=== PATIENT | female | born 1990 | race Caucasian/White ===

== ENCOUNTER 2018-03-27 10:27 | Outpatient (CLI) | payer OTHER ==
[~2018-03-27] VITALS: Ht 152.4 cm; Wt 59.0 kg
[~2018-03-27 10:27] MED LIST: CYCLOBENZAPRINE10 MG PO; DICLOFENAC SODI50 MG PO; MOTRIN800 MG PO; ORPH100T PO
== END 2018-03-27 10:45 | disposition home or self-care (01) ==
LOC: OFIC 805 10:27
DX: J32.8 Other chronic sinusitis (principal); R09.81 Nasal congestion; J34.89 Other specified disorders of nose and nasal sinuses

== ENCOUNTER 2018-03-27 12:18 | Outpatient (CLI) | payer OTHER | END 2018-03-27 13:05 | disposition home or self-care (01) | LOC: TOM 12:18 → ADM 15:15 → TOM 15:15 | DX: J32.4 Chronic pansinusitis (principal) ==

== ENCOUNTER 2018-04-02 08:24 | Outpatient (CLI) | payer OTHER ==
[~2018-04-02] VITALS: Ht 152.4 cm; Wt 59.0 kg
== END 2018-04-02 08:45 | disposition home or self-care (01) ==
LOC: OFIC 805 08:24
DX: J32.8 Other chronic sinusitis (principal); R09.81 Nasal congestion; R09.82 Postnasal drip; J34.89 Other specified disorders of nose and nasal sinuses

== ENCOUNTER 2018-05-15 09:05 | Outpatient (CLI) | payer OTHER ==
[~2018-05-15] VITALS: Ht 152.4 cm; Wt 59.0 kg
== END 2018-05-15 09:20 | disposition home or self-care (01) ==
LOC: OFIC 805 09:05
DX: J32.8 Other chronic sinusitis (principal); R09.81 Nasal congestion; J34.89 Other specified disorders of nose and nasal sinuses; R09.82 Postnasal drip

== ENCOUNTER → 2018-06-13 15:46 | Outpatient (CLI) | payer OTHER | END | disposition home or self-care (01) | LOC: RAD 13:45 → ADM 13:45 → RAD 15:46 | DX: S86.912A Strain of unspecified muscle(s) and tendon(s) at lower leg level, left leg, initial encounter (principal) ==

== ENCOUNTER 2019-03-14 08:53 | Outpatient (CLI) | payer OTHER ==
[~2019-03-14] VITALS: Ht 152.4 cm; Wt 61.2 kg
== END 2019-03-14 09:15 | disposition home or self-care (01) ==
LOC: OFIC 805 08:53
DX: H61.23 Impacted cerumen, bilateral (principal); R09.82 Postnasal drip; J34.89 Other specified disorders of nose and nasal sinuses

== ENCOUNTER 2020-09-23 09:23 | Outpatient (CLI) | payer OTHER | END 2020-09-23 16:23 | disposition home or self-care (01) | LOC: OFIC 805 09:23 | PROVIDERS: ATTEND Otolaryngology | DX: R09.82 Postnasal drip (principal); J34.89 Other specified disorders of nose and nasal sinuses; J30.89 Other allergic rhinitis ==

== ENCOUNTER 2022-10-08 07:00 | Day surgery (SDC) | payer OTHER | END 2022-10-08 15:10 | disposition home or self-care (01) | LOC: CIR.AMB 07:00 | PROVIDERS: ATTEND Obstetrics & Gynecology | DX: O02.1 Missed abortion (principal); O72.2 Delayed and secondary postpartum hemorrhage; Z91.013 Allergy to seafood; Z91.040 Latex allergy status; Z20.822 Contact with and (suspected) exposure to COVID-19; D64.89 Other specified anemias ==

== ENCOUNTER → 2023-06-06 | Emergency (ER) | payer OTHER ==
[~2023-06-06] VITALS: Ht 170.2 cm; Wt 64.9 kg
== END | disposition left against medical advice (07) ==
LOC: ER 08:11
DX: Z53.21 Procedure and treatment not carried out due to patient leaving prior to being seen by health care provider (principal)

== ENCOUNTER → 2023-09-05 | Emergency (ER) | payer OTHER ==
[~2023-09-05] MED LIST changes: +ASA81 MG PO; +IRON236 MG; +PRENATAL CAPLE1 EAC1; +PROMETRIUM200 MG PO
== END | disposition left against medical advice (07) ==
LOC: ER 22:17
DX: Z53.21 Procedure and treatment not carried out due to patient leaving prior to being seen by health care provider (principal)

== ENCOUNTER 2023-09-06 00:50 | Outpatient (CLI) | payer OTHER ==
[~2023-09-06 00:50] MED LIST changes: -ASA81 MG PO; -IRON236 MG; -PRENATAL CAPLE1 EAC1; -PROMETRIUM200 MG PO
[2023-09-06] MEDS ORDERED: IRON236 MG (01:03)
[2023-09-06] MEDS ORDERED: PRENATAL CAPLE1 EAC1 (01:03)
[2023-09-06] MEDS ORDERED: ASA81 MG PO (01:04)
[2023-09-06] MEDS ORDERED: PROMETRIUM200 MG PO (01:04)
== END 2023-09-06 12:14 | disposition home or self-care (01) ==
LOC: OBS/DEL 00:50
PROVIDERS: ATTEND Obstetrics & Gynecology Gynecology
DX: O26.93 Pregnancy related conditions, unspecified, third trimester (principal); Z3A.33 33 weeks gestation of pregnancy

== ENCOUNTER 2023-10-12 11:46 | Outpatient (CLI) | payer OTHER ==
[~2023-10-12 11:46] MED LIST changes: +ASA81 MG PO; +IRON236 MG; +PRENATAL CAPLE1 EAC1; +PROMETRIUM200 MG PO
== END 2023-10-12 12:27 | disposition home or self-care (01) ==
LOC: NST 11:46
PROVIDERS: ATTEND Obstetrics & Gynecology Gynecology
DX: Z34.83 Encounter for supervision of other normal pregnancy, third trimester (principal)

== ENCOUNTER 2023-10-18 05:24 | Inpatient (IN) | payer OTHER ==
[~2023-10-18] VITALS: Ht 170.2 cm; Wt 79.8 kg
[2023-10-18 07:02] LABS: HEMATOCRIT 32.4 % (36.0-45.00); HEMOGLOBIN 11.3 g/dL (12.0-15.00); MEAN CELL VOLUME 90.6 fL (80.00-100.00); MEAN CORPUSCULAR HEMOGLOBIN 31.7 pg (27.00-32.0); PLATELET COUNT 166 K/uL (150-450); RED BLOOD COUNT 3.57 M/uL (4.00-6.00); RED CELL DISTRIBUTION WIDTH 13.3 % (11.5-14.5)
[2023-10-18 07:24] LABS: INR < 0.93; PARTIAL THROMBOPLASTIN TIME 29.1 SECONDS (22.0-34.0); PROTHROMBIN TIME 9.7 SECONDS (9.0-11.5)
[2023-10-18 07:31] LABS: ALBUMIN 2.7 gm/dL (3.4-5.0); BILIRUBIN TOTAL 0.39 mg/dL (0.3-1.2); CALCIUM 8.7 mg/dL (8.5-10.1); CREATININE SERUM 0.58 mg/dL (0.55-1.02); GFR 118.3; GLOBULINA 3.5 G/DL (2.4-3.5); POTASSIUM 3.25 mEq/L (3.5-5.1); TOTAL PROTEIN 6.2 gm/dL (6.4-8.2)
[2023-10-18] MEDS ORDERED: OXYTOCIN 500 ML IV ONE (08:15)
[2023-10-18] MEDS ORDERED: CHLORHEXIDINE GLUCONATE 120 ML BOTTLE TOP ONE (10:39)
[2023-10-18] MEDS ORDERED: ERYTHROMYCIN BASE 1 GM TUBE OP ONE (10:39)
[2023-10-18] MEDS ORDERED: OXYTOCIN 20 UNITS/1000ML RL PIGGYBAG IV ONE (10:40)
[2023-10-18] MEDS ORDERED: MORPHINE SULFATE 4 MG/ML CARTRIDGE IV ONE (11:00)
[2023-10-18] MEDS ORDERED: NALOXONE HCL 0.4 MG/ML AMPUL ONE (12:04)
[2023-10-18] MEDS ORDERED: LIDOCAINE HCL 1% 200MG/20ML VIAL IJ SCH (12:30)
[2023-10-18] MEDS ORDERED: CHLORHEXIDINE GLUCONATE 120 ML BOTTLE TOP SCH (12:30)
[2023-10-18] MEDS ORDERED: IBUprofen 400 MG TABLET PO PRN (12:30)
[2023-10-18] MEDS ORDERED: ERYTHROMYCIN BASE 1 GM TUBE OP SCH (12:30)
[2023-10-18 14:52] LABS: ABG PH 7.318 (7.35-7.45); ABG PO2 42.7 mmHg (80-100); ABG pCO2 45.7 mmHg (35-45); BASE EXCESS -3.4 mmol/l; BICARBONATE 22.9 mmol/l (23-25); Tco2 24.3 mmol/l; o2 21 %
[2023-10-18] MEDS ORDERED: OXYTOCIN 1,000 ML IV ONE (15:15)
[2023-10-19 07:04] LABS: MEAN CELL VOLUME 91.1 fL (80.00-100.00); MEAN CORPUSCULAR HGB CONC 35.4 g/dl (32.0-36.0); PLATELET COUNT 155 K/uL (150-450); RED BLOOD COUNT 2.57 M/uL (4.00-6.00); RED CELL DISTRIBUTION WIDTH 13.1 % (11.5-14.5)
[2023-10-19 07:19] LABS: HEMATOCRIT 23.4 % (36.0-45.00); MEAN CORPUSCULAR HEMOGLOBIN 32.2 pg (27.00-32.0)
[2023-10-19 07:20] LABS: HEMOGLOBIN 8.3 g/dL (12.0-15.00)
== END 2023-10-20 14:31 | disposition home or self-care (01) | DRG 807 ==
LOC: OB/GYN 05:24 → LDR 05:24 → OB/GYN 14:31 → LDR 10-19 15:56 → OB/GYN 10-20 14:31
PROVIDERS: Obstetrics & Gynecology; ADMIT Obstetrics & Gynecology Gynecology; ATTEND Obstetrics & Gynecology Gynecology
PROC: 10E0XZZ Delivery of Products of Conception, External Approach (ICD-10-PCS; principal; 2023-10-18)
PROC: 0KQM0ZZ Repair Perineum Muscle, Open Approach (ICD-10-PCS; 2023-10-18)
PROC: 4A1HXCZ Monitoring of Products of Conception, Cardiac Rate, External Approach (ICD-10-PCS; 2023-10-18)
DX: O70.1 Second degree perineal laceration during delivery (principal); Z37.0 Single live birth; Z3A.39 39 weeks gestation of pregnancy; Z20.822 Contact with and (suspected) exposure to COVID-19